=== PATIENT | female | born 1995 | race Caucasian/White ===

== ENCOUNTER 2023-02-26 07:50 | Observation (INO) | payer OTHER, SELFPAY ==
[2023-02-26] VITALS (21 sets, daily range): BP systolic 100–145; BP diastolic 54–92; PULSE 57–100; RESP 12–18; TEMP 36.2–36.9; O2SAT 95–100; BMI 31.6
--- NOTE | 2023-02-26 | DI.US.S_ITS ---
PROCEDURE: US PELVIC COMPLETE INDICATIONS: RIGHT LOWER QUADRANT PAIN ?CYST TECHNIQUE: Real-time scanning was performed of the pelvic organs, with image documentation. Additional endovaginal scanning was necessary due to incomplete visualization of the adnexal and endometrial structures by transabdominal scanning. COMPARISON: None. FINDINGS: Uterus: Uterus is anteverted and normal in size at 7.4 x 4.8 x 3.6 cm. The myometrium is homogeneous. The endometrium measures 4 mm combined thickness. No focal uterine mass Ovaries: The right ovary measures 4.5 x 1.8 x 2.4 cm, with a calculated ovarian volume of 9.9 cc. The left ovary measures 4.5 x 3.6 x 2.5 cm, with a calculated ovarian volume of 22.5 cc. There is intact flow to both ovaries. Multiple left ovarian cysts are present, largest of which measures 28 mm and 18 mm. Other: Physiologic amount of fluid within the pelvis. Appendix is not seen. IMPRESSION: 1. No acute process. 2. Appendix not seen. 3. Left ovarian cysts. We strive to produce accurate, complete, and clear reports of imaging services. To assist us in improving patient care, this report was composed using standard report templates and voice recognition software. Therefore, it may contain abnormal punctuation, insertions and/or omissions. Occasional wrong-word or sound-alike substitutions may occur. Though we review the report and make efforts to correct it, we do recommend that the report be read carefully in proper context to recognize any text inaccuracies. Dictated by: Ml Rocha M.D. on 02/26/2023 at 12:05 Approved by: Ml Rocha M.D. on 02/26/2023 at 12:07
--- NOTE | 2023-02-26 | PATH_ITS ---
[facility] Accession Number: [id number] No. of containers..01 Tissue . 01 Material submitted: . appendix - APPENDIX . 01 Diagnosis: Appendix, Appendectomy: Acute appendicitis and periappendicitis. MRV 03/07/2023 1245 Local . 01 Electronically signed: . Lashay Mishra MD, Pathologist NPI- [id number] . 01 Gross description: . The specimen is received in formalin labeled with the patient's name, , and appendix, consists of a cheema vermiform appendix measuring 4.9 cm in length by 0.7 cm in diameter with cheema smooth serosa and a small amount of adherent material, possibly consistent with exudate. Mesoappendix extends out to 1.9 cm, and the margin is inked blue. Sectioning reveals a patent pinpoint lumen with no contents identified. The ackerman are cheema and average 0.4 cm thick with no perforations or lesions identified. Tin Can Feeder sections to include the margin, one-half of the bisected distal tip, and cross sections are submitted in cassette A1. ([id number]) /MRV 02/27/2023 1839 Local . 01 Pathologist provided ICD-10: K35.80 . 01 CPT . 923204 Specimen Comment: A courtesy copy of this report has been sent to [phone] Performed at: 01 [facility] [address] [place] [address] [facility] [place], [place], [place] [id number] MD Tamir Bazan MD Phone: [phone]
--- NOTE | 2023-02-26 08:03 | ED_ITS ---
HPI - Abdominal Pain General Chief Complaint: Abdominal Pain Stated Complaint: abd pain Time Seen by Provider: 02/26/23 08:03 Source: patient Mode of arrival: Ambulatory Limitations: no limitations History of Present Illness HPI narrative: Healthy 27-year-old female with Nexplanon in place with complaint of right-sided abdominal pain that started last night around 1900. Patient states no back or flank pain. It has been constant throughout the night but increased this morning. Patient denies any fevers or chills. No nausea or vomiting. No chest pain or shortness of breath. No syncope. Patient states she is been a little constipated she is had hard stools but did have a bowel movement in the last day that had small amounts. No black or bloody stools. No dysuria, urgency or frequency. No vaginal bleeding or discharge. Patient states her menses have been somewhat irregular since she would her Nexplanon placed. She states pain is worse with any sort of movement, twisting bumps in the car. She states rest or no movement makes it improved. Describes it as sort of a slow onset. Patient states no daily prescriptions. No known drug allergies. No prior surgery she does have her gallbladder and appendix. No tobacco, occasional alcohol, no recreational drugs. Related Data Home Medications Medication Instructions Recorded Confirmed No Known Home Medications 02/26/23 02/26/23 Allergies Allergy/AdvReac Type Severity Reaction Status Date / Time No Known Drug Allergies Allergy Verified 02/26/23 07:58 Review of Systems Review of Systems ROS Unobtainable: All systems reviewed & are unremarkable except as noted in HPI and below Patient History Social History household members: none Smoking Status: Never smoker Smoking Status: Never smoker alcohol intake frequency: a few times a week Substance Use Type: does not use Exam Narrative Exam Narrative: GENERAL: Alert and oriented x three, well-appearing female in mild distress. HEENT: Head normocephalic, atraumatic, EOMI, pupils reactive, face symmetric, moist mucous membranes NECK: Supple, full range of motion CARDIOVASCULAR: Regular rate and rhythm without murmurs, rubs or gallops. RESPIRATORY: Breath sounds equal bilaterally, no wheezes rales or rhonchi. ABDOMEN: Soft, positive for right lower quadrant tenderness. Minimal to no tenderness in the right upper quadrant. Patient also has positive Rovsing sign. Normoactive bowel sounds all 4 quadrants. No guarding or rebound, rigidity, no mass : No CVA tenderness EXTREMITIES: Normal range of motion, no clubbing or edema. Neurovascularly intact NEUROLOGICAL: Cranial nerves II through XII grossly intact. Moving all extremities SKIN: Warm, dry, no petechiae, no rashes or lesions. Initial Vital Signs Initial Vital Signs: Vital Signs Temperature 97.9 F 02/26/23 07:59 Pulse Rate 100 H 02/26/23 07:59 Respiratory Rate 18 02/26/23 07:59 Blood Pressure 132/83 02/26/23 07:59 Pulse Oximetry 99 02/26/23 07:59 Oxygen Delivery Method Room Air 02/26/23 07:59 Course Orders Ordered: ED Orders 02/26/23 10:08 CT abdomen pelvis w con Stat Acetaminophen (Acetaminophen 325 Mg Tablet) 650 mg PO Q6H PRN PRN Reason: Fever/Mild Pain (1-3) Hydrocodone Bitart/Acetaminophen (Hydrocodone/Acet 5/325 Tablet) 1 tab PO Q4H PRN PRN Reason: Pain, Moderate (4-6) Hydrocodone Bitart/Acetaminophen (Hydrocodone/Acet 5/325 Tablet) 2 tab PO Q4H PRN PRN Reason: Pain, Severe (7-10) Hydromorphone HCl (Hydromorphone 1 Mg Inj) 0 mg IV Q5MIN PRN PRN Reason: Pain, Moderate (4-6) Hydromorphone HCl (Hydromorphone 1 Mg Inj) 0 mg IV Q5MIN PRN PRN Reason: Pain, Mild (1-3) Hydromorphone HCl (Hydromorphone 0.5 Mg Inj) 0.5 mg IV Q2H PRN PRN Reason: Pain, Severe (7-10) Lactated Ringer's (Lactated Ringers) 1,000 mls @ 42 mls/hr IV CONT DONNA Last Admin: 02/26/23 15:58 Dose: 42 mls/hr Documented By: Ibuprofen (Ibuprofen 600 Mg Tablet) 600 mg PO Q6H PRN PRN Reason: Fever/Mild Pain (1-3) Naloxone HCl (Naloxone 0.4 Mg/Ml Vial) 0.2 mg IV Q2MIN PRN PRN Reason: Opiate Reversal Ondansetron HCl (Ondansetron 4 Mg Odt) 4 mg PO NOW PRN PRN Reason: Nausea And Vomiting Ondansetron HCl (Ondansetron 4 Mg/2 Ml Inj) 4 mg IV NOW PRN PRN Reason: Nausea And Vomiting Ondansetron HCl (Ondansetron 4 Mg/2 Ml Inj) 4 mg IV NOW PRN PRN Reason: Nausea And Vomiting Ondansetron HCl (Ondansetron 4 Mg/2 Ml Inj) 4 mg IV Q8HR PRN PRN Reason: Nausea And Vomiting Oxycodone HCl (Oxycodone Ir 5 Mg Tablet) 5 mg PO PACUNOW PRN PRN Reason: Mild or moderate pain Last Admin: 02/26/23 16:44 Dose: 5 mg Documented By: ELIOT Discontinued Medications Bupivacaine HCl 30 ml/ (Epinephrine HCl 0.15 mg) 0 ml INJ NOW ONE Stop: 02/26/23 15:44 Last Admin: 02/26/23 15:43 Dose: 20 ml Documented By: Sodium Chloride (Normal Saline 0.9%) 1,000 mls @ 1,000 mls/hr IV BOLUS ONE Stop: 02/26/23 09:13 Last Infusion: 02/26/23 09:32 Dose: Infused Documented By: Admin: 02/26/23 08:17 Dose: 1,000 mls/hr Documented By: SYLVIA Piperacillin Sod/Tazobactam (Sod 4.5 gm/ Sodium Chloride) 100 mls @ 200 mls/hr IV NOW ONE Stop: 02/26/23 11:52 Last Infusion: 02/26/23 12:24 Dose: 200 mls/hr Documented By: Admin: 02/26/23 12:04 Dose: 200 mls/hr Documented By: KALLIE Ketorolac Tromethamine (Ketorolac 30 Mg/Ml Vial) 15 mg IV NOW ONE Stop: 02/26/23 08:15 Last Admin: 02/26/23 08:17 Dose: 15 mg Documented By: SYLVIA Scopolamine (Scopolamine 1 Patch) 1 patch TOP NOW ONE Stop: 02/26/23 13:21 Last Admin: 02/26/23 14:56 Dose: 1 patch Documented By: HUDSON Vital Signs Vital signs: Vital Signs - 8 hr 02/26/23 11:04 02/26/23 11:05 02/26/23 11:05 Pulse Rate 72 70 Blood Pressure 135/73 Pulse Oximetry 95 100 02/26/23 11:30 02/26/23 11:30 02/26/23 12:00 Pulse Rate 78 77 Blood Pressure 129/92 H Pulse Oximetry 98 98 02/26/23 12:00 Pulse Rate Blood Pressure 129/73 Pulse Oximetry MDM - Abdominal Pain Lab Data 02/26/23 08:05 02/26/23 08:05 Labs: Lab Results 02/26/23 02/26/23 Range/Units 08:05 09:10 WBC 8.1 (4.5-11.0) X10^3/uL RBC 4.40 (4.0-5.2) X10^6/uL Hgb 14.3 (12.0-16.0) g/dL Hct 40.0 (36-46) % MCV 90.9 (80-100) fL MCH 32.4 (26-34) PG MCHC 35.6 (30-36) % RDW 12.6 (11.6-14.8) % Plt Count 236 (150-400) X10^3/uL Neut % (Auto) 78.2 H (50-75) % Lymph % (Auto) 13.1 L (25-40) % [place] % (Auto) 7.4 (3-14) % Eos % (Auto) 1.0 L (2-4) % Baso % (Auto) 0.3 (0-2) % Neut # (Auto) 6400 (8738-0909) /uL Lymph # (Auto) 1100 (1897-8803) /uL [place] # (Auto) 600 (0-900) /uL Eos # (Auto) 100 (0-450) /uL Baso # (Auto) 0 (0-100) /uL Sodium 136 L (137-145) mmol/L Potassium 3.6 (3.4-5.1) mmol/L Chloride 103 (98-107) mmol/L Carbon Dioxide 28 (22-32) mmol/L BUN 15 (7-17) mg/dL Creatinine 0.79 (0.52-1.04) mg/dL Estimated GFR > 60 (>60) mL/min BUN/Creatinine Ratio 19.0 (6-22) Glucose 99 (70-100) mg/dL Calcium 10.0 (8.4-10.2) mg/dL Total Bilirubin 1.9 H (0.2-1.3) mg/dL AST 23 (14-36) IU/L ALT 21 (<35) IU/L Alkaline Phosphatase 63 (38-126) U/L Total Protein 7.5 (6.3-8.2) g/dL Albumin 4.5 (3.5-5.0) g/dL Globulin 3.0 (1.7-4.1) g/dL Albumin/Globulin Ratio 1.5 (1.0-2.8) Lipase 50 (23-300) U/L Urine Color Yellow Urine Appearance Clear Urine pH 7.5 (4.5-8.0) Ur Specific [place] 1.015 (1.000-1.035) Urine Protein Negative (Negative) Urine Glucose (UA) Negative (Negative) g/dL Urine Ketones Negative (NEGATIVE) Urine Occult Blood Negative (Negative) Urine Nitrate Negative (Negative) Urine Bilirubin Negative (NEGATIVE) Urine Urobilinogen Normal (0.2) E.U./dL Ur Leukocyte Esterase Negative (NEGATIVE) Urine RBC None seen (0-5/HPF) Urine WBC None seen (0-5/HPF) Ur Squamous Epith Cells None seen (0-5/HPF) Urine Bacteria None seen (None) Ur Culture Indicated? Cult not indicated Urine Test Negative (Negative) Imaging Data CT scan - abdomen/pelvis: Radiologist's Impression: [place] [address] CT Scan Report Signed Patient: Tawny Viveros MR#: [id number] : 1995 Acct:[id number] Age/Sex: 27 / F Date of Service: 02/26/23 Loc: ED Accession Number: [id number] Procedure: CT abdomen pelvis w con Ordering Provider: Mechelle Post D.O. PROCEDURE: CT ABDOMEN PELVIS W CON INDICATIONS: RLQ pain TECHNIQUE: After the administration of intravenous contrast, axial sections acquired from the lung bases to the pubic symphysis. Coronal and sagittal reformats were performed. For radiation dose reduction, the following was used: automated exposure control, adjustment of mA and/or kV according to patient size. COMPARISON: None. FINDINGS: Image quality: Excellent. Lung bases: Unremarkable. Heart: No significant findings. ABDOMEN: Liver: Unremarkable. Gallbladder: Unremarkable. Biliary ducts: Unremarkable. Pancreas: Unremarkable. Spleen: Unremarkable. Adrenal Glands: Unremarkable. Kidneys and Ureters: Unremarkable. Stomach and Bowel: Stomach, small bowel loops, and colon are unremarkable. Appendix measures 10 mm without surrounding fat stranding. Peritoneum: No abnormal intraperitoneal fluid. No free air. Ventral Wall: No hernias. Abdominal Nodes: No retroperitoneal or mesenteric adenopathy by size criteria. Vessels: Aorta and inferior vena cava are normal in size. PELVIS: Pelvic Organs: Unremarkable. Bladder: Unremarkable. Pelvic Nodes: No enlarged lymph nodes. Miscellaneous: No hernias are seen. Bones: Unremarkable. IMPRESSION: 1. Mild enlargement of the appendix, consistent with acute appendicitis in the appropriate clinical setting. Dictated by: Ml Rocha M.D. on 02/26/2023 at 11:29 Approved by: Ml Rocha M.D. on 02/26/2023 at 11:30 MDM Narrative Medical decision making narrative: 27-year-old female presents with complaint of right lower abdominal pain. Patient states started about 12 hours ago has been persistent worsening of the into today. Patient's physical exam seems most consistent with a appendicitis she is positive Rovsing sign and right lower quadrant tenderness on examination. No back or flank pain. She has been slightly constipated but having bowel movements. No other obstructive symptoms. Discussed with patient we will start with labs, urine and ultrasound to evaluate for appendicitis versus ovarian cyst versus other. Discussed with patient if unable to image appendix with the next proceed to CT imaging. Plan for fluids, pain control and on recheck Patient's labs showed elevated bilirubin. Slight leftward shift. Sodium 136. Otherwise normal LFTs and lipase. Spoke with ultrasound and they added on right upper quadrant. Appendix was not visualized patient has a 3 cm cyst on the no obvious changes to her gallbladder on the right. Urine sample shows no acute change. Urine is negative. CT abdomen pelvis obtained and shows appendicitis with 10 mm appendix no stranding. Spoke with Dr. Merrill reviewed patient's exam findings are consistent with appy. She has enlarged appendix and ultrasound reports are not back but she found no acute change to gallbladder with a left ovarian cyst appendix was not visualized on ultrasound. Accepts with plan for OR today or tomorrow. Asked for a dose of IV Zosyn. We will see patient to discuss options. Patient was updated she is agreeable with the plan. Discharge Plan Departure Patient Disposition: Admitted as Observation Clinical Impression: Acute appendicitis Qualifiers: Acute appendicitis type: with localized peritonitis Appendicitis gangrene presence: without gangrene Appendicitis perforation presence: without perforation Appendicitis abscess presence: without abscess Qualified Code(s): K 35.30 - Acute appendicitis with localized peritonitis, without perforation or gangrene Admit Date/Time: 02/26/23 12:00 Admit Provider: Jhonatan Merrill
--- NOTE | 2023-02-26 08:13 | DI.US.S_ITS ---
PROCEDURE: US ABDOMEN LIMITED INDICATIONS: RIGHT LOWER QUADRANT PAIN ?APPENDICITIS TECHNIQUE: Real-time focused scanning was performed of the abdomen, with image documentation. COMPARISON: None. FINDINGS: Liver is within normal limits. Gallbladder is grossly unremarkable. No biliary ductal dilatation. Pancreas is grossly unremarkable. IMPRESSION: No acute process. Dictated by: Ml Rocha M.D. on 02/26/2023 at 12:05 Approved by: Ml Rocha M.D. on 02/26/2023 at 12:05
[2023-02-26 08:17] LABS: Add Manual Diff / Slide Review NO; Basophils Absolute Auto 0 /uL (0-100); Basophils Percent Auto 0.3 % (0-2); Eosinophils Absolute Auto 100 /uL (0-450); Hemoglobin 14.3 g/dL (12.0-16.0); Lymphocytes Absolute Auto 1100 /uL (1100-4500); Lymphocytes Percent Auto 13.1 % (25-40); Mean Corpuscular HGB Conc 35.6 % (30-36); Mean Corpuscular Hemoglobin 32.4 PG (26-34); Mean Corpuscular Volume 90.9 fL (80-100); Monocytes Absolute Auto 600 /uL (0-900); Monocytes Percent Auto 7.4 % (3-14); Neutrophils Absolute Auto 6400 /uL (1500-7000); Neutrophils Percent Auto 78.2 % (50-75); Platelet Count 236 X10^3/uL (150-400); Red Cell Distribution Width 12.6 % (11.6-14.8); White Blood Cell Count 8.1 X10^3/uL (4.5-11.0)
[2023-02-26] MEDS: SODIUM CHLORIDE 0.9% 1,000 ML 1000 ML IV (08:17)
[2023-02-26] MEDS: KETOROLAC 30 MG/ML VIAL 15 MG IV (08:17)
[2023-02-26 08:28] LABS: Alanine Aminotransferase 21 IU/L (<35); Albumin 4.5 g/dL (3.5-5.0); Albumin Globulin Ratio 1.5 (1.0-2.8); Alkaline Phosphatase 63 U/L (38-126); Aspartate Aminotransferase 23 IU/L (14-36); Bilirubin Total 1.9 mg/dL (0.2-1.3); Blood Urea Nitrogen 15 mg/dL (7-17); Carbon Dioxide 28 mmol/L (22-32); Chloride 103 mmol/L (98-107); Estimated Glomerular Filt Rate > 60 mL/min (>60); Glucose 99 mg/dL (70-100); HEMOLYSIS < 15 (0-50); Lipase 50 U/L (23-300); Potassium 3.6 mmol/L (3.4-5.1); Sodium 136 mmol/L (137-145); Total Protein 7.5 g/dL (6.3-8.2)
[2023-02-26 09:31] LABS: Pregnancy Test Urine Negative (Negative)
[2023-02-26 09:34] LABS: Appearance Urine UA Clear; Color Urine UA YELLOW
[2023-02-26 09:35] LABS: Bacteria Urine None Seen; Bilirubin Urine UA Negative (NEGATIVE); Culture Indicated Urine Cult Not Indicated; Glucose Urine UA NEGATIVE (Negative); Ketones Urine UA NEGATIVE (NEGATIVE); Leukocyte Esterase Urine UA NEGATIVE (NEGATIVE); Nitrite Urine UA NEGATIVE (Negative); Occult Blood Urine UA Negative (Negative); Protein Urine UA Negative (Negative); RBC Urine None Seen (0-5/HPF); Specific Gravity Urine UA 1.015 (1.000-1.035); Squamous Epithelial Cell Urine None Seen (0-5/HPF); Urobilinogen Urine UA Normal E.U./dL (0.2); WBC Urine None Seen (0-5/HPF); pH Urine UA 7.5 (4.5-8.0)
--- NOTE | 2023-02-26 10:08 | DI.CT.S_ITS ---
PROCEDURE: CT ABDOMEN PELVIS W CON INDICATIONS: RLQ pain TECHNIQUE: After the administration of intravenous contrast, axial sections acquired from the lung bases to the pubic symphysis. Coronal and sagittal reformats were performed. For radiation dose reduction, the following was used: automated exposure control, adjustment of mA and/or kV according to patient size. COMPARISON: None. FINDINGS: Image quality: Excellent. Lung bases: Unremarkable. Heart: No significant findings. ABDOMEN: Liver: Unremarkable. Gallbladder: Unremarkable. Biliary ducts: Unremarkable. Pancreas: Unremarkable. Spleen: Unremarkable. Adrenal Glands: Unremarkable. Kidneys and Ureters: Unremarkable. Stomach and Bowel: Stomach, small bowel loops, and colon are unremarkable. Appendix measures 10 mm without surrounding fat stranding. Peritoneum: No abnormal intraperitoneal fluid. No free air. Ventral Wall: No hernias. Abdominal Nodes: No retroperitoneal or mesenteric adenopathy by size criteria. Vessels: Aorta and inferior vena cava are normal in size. PELVIS: Pelvic Organs: Unremarkable. Bladder: Unremarkable. Pelvic Nodes: No enlarged lymph nodes. Miscellaneous: No hernias are seen. Bones: Unremarkable. IMPRESSION: 1. Mild enlargement of the appendix, consistent with acute appendicitis in the appropriate clinical setting. Dictated by: Ml Rocha M.D. on 02/26/2023 at 11:29 Approved by: Ml Rocha M.D. on 02/26/2023 at 11:30
[2023-02-26] MEDS: PIPERACILLIN/TAZO 4.5 GM in SODIUM CHLORIDE 0.9% 100 ML IV (12:04)
--- NOTE | 2023-02-26 13:04 | PM.HP.1 ---
History of Present Illness History of Present Illness Date Patient Seen: 02/26/23 Time Patient Seen: 13:04 Chief complaint: abd pain Narrative: Jenifer is a 27-year-old woman who developed generalized abdominal pain last night. The pain then localized to the right lower quadrant. She came to the ER today and a CT demonstrated an enlarged appendix consistent with an early appendicitis. Her white blood cell count is normal. She last ate at 6:30 a.m. this morning. No prior abdominal surgery. [facility] Social History household members: none Smoking Status: Never smoker Meds Home Medications and Allergies Home Medications Medication Instructions Recorded Confirmed Type No Known Home Medications 02/26/23 02/26/23 History Allergies Allergy/AdvReac Type Severity Reaction Status Date / Time No Known Drug Allergies Allergy Verified 02/26/23 07:58 Exam Vital Signs (past 8 hours): - 02/26/23 07:59 02/26/23 09:52 02/26/23 09:52 Temperature 97.9 F Pulse Rate 100 H 87 Respiratory Rate 18 Blood Pressure 132/83 145/73 H Pulse Oximetry 99 99 Oxygen Delivery Method Room Air 02/26/23 10:00 02/26/23 10:00 02/26/23 10:30 Temperature Pulse Rate 69 62 Respiratory Rate Blood Pressure 140/60 Pulse Oximetry 97 97 Oxygen Delivery Method 02/26/23 10:30 02/26/23 11:04 02/26/23 11:05 Temperature Pulse Rate 72 Respiratory Rate Blood Pressure 123/67 135/73 Pulse Oximetry 95 Oxygen Delivery Method 02/26/23 11:05 02/26/23 11:30 02/26/23 11:30 Temperature Pulse Rate 70 78 Respiratory Rate Blood Pressure 129/92 H Pulse Oximetry 100 98 Oxygen Delivery Method 02/26/23 12:00 02/26/23 12:00 Temperature Pulse Rate 77 Respiratory Rate Blood Pressure 129/73 Pulse Oximetry 98 Oxygen Delivery Method Oxygen Delivery Method Room Air Narrative Exam Narrative: Tender to palpation at McBurney's point Objective Labs 02/26/23 08:05 02/26/23 08:05 Labs: Laboratory Results - last 24 hr 02/26/23 02/26/23 08:05 09:10 WBC 8.1 RBC 4.40 Hgb 14.3 Hct 40.0 MCV 90.9 MCH 32.4 MCHC 35.6 RDW 12.6 Plt Count 236 Neut % (Auto) 78.2 H Lymph % (Auto) 13.1 L [place] % (Auto) 7.4 Eos % (Auto) 1.0 L Baso % (Auto) 0.3 Neut # (Auto) 6400 Lymph # (Auto) 1100 [place] # (Auto) 600 Eos # (Auto) 100 Baso # (Auto) 0 Sodium 136 L Potassium 3.6 Chloride 103 Carbon Dioxide 28 BUN 15 Creatinine 0.79 Estimated GFR > 60 BUN/Creatinine Ratio 19.0 Glucose 99 Calcium 10.0 Total Bilirubin 1.9 H AST 23 ALT 21 Alkaline Phosphatase 63 Total Protein 7.5 Albumin 4.5 Globulin 3.0 Albumin/Globulin Ratio 1.5 Lipase 50 Urine Color Yellow Urine Appearance Clear Urine pH 7.5 Ur Specific [place] 1.015 Urine Protein Negative Urine Glucose (UA) Negative Urine Ketones Negative Urine Occult Blood Negative Urine Nitrate Negative Urine Bilirubin Negative Urine Urobilinogen Normal Ur Leukocyte Esterase Negative Urine RBC None seen Urine WBC None seen Ur Squamous Epith Cells None seen Urine Bacteria None seen Ur Culture Indicated? Cult not indicated Urine Test Negative Assessment & Plan Assessment and plan (1) Acute appendicitis: Qualifiers: Acute appendicitis type: with localized peritonitis Appendicitis gangrene presence: without gangrene Appendicitis perforation presence: without perforation Appendicitis abscess presence: without abscess Qualified Code(s): K35.30 - Acute appendicitis with localized peritonitis, without perforation or gangrene Status: Acute Plan I explained to Jenifer that she appears to have an early acute appendicitis. Alternatively, this could be an enlarged appendix that is normal and her pain could be from something else. I explained that the treatment options for acute appendicitis or laparoscopic appendectomy or antibiotic therapy. I discussed the risks and benefits of both approaches. I recommended that we proceed with a laparoscopic appendectomy. She would like to proceed. She is receiving Zosyn. Quality VTE Deep Vein Thrombosis/Pulmonary Embolism Present on Admission: No
[2023-02-26] MEDS: SCOPOLAMINE 1 PATCH TOP (14:56)
[2023-02-26 15:11] LABS: COVID19 -Nasal RAPID POSITIVE (Negative)
[2023-02-26] MEDS: BUPIVACAINE 0.5% (PF) 30 ML, EPINEPHrine 0.15 MG INJ (15:43)
--- NOTE | 2023-02-26 15:44 | SUR.OPER ---
Supine on padded OR bed, head on pillow, safety belt at thigh, left arm padded and tucked at side. Right arm secured on padded arm board <90 degrees abduction. Legs uncrossed. Padded footboard in place. Tape over blanket to secure lower legs.
[2023-02-26] MEDS: LACTATED RINGERS 1,000 ML 42 ML IV (15:58)
--- NOTE | 2023-02-26 16:26 | PM.OP.1 ---
Operative Date/Time/Diagnoses Date of procedure: 02/26/23 Time of procedure: 16:27 Pre-op diagnosis: Acute appendicitis Post-op diagnosis: same Procedure & Clinicians Procedure: Laparoscopic appendectomy Same procedure as scheduled: Yes Surgeon: Jhonatan Merrill Click Yes if Unassisted: Yes Anesthesia Type: General Operative Notes Procedure in detail: The patient was on scheduled IV antibiotics. The patient was brought to the operating room, placed on the table in the supine position and general endotracheal anesthesia was induced. A time-out was performed. The abdomen was prepped and draped in the usual fashion. After injection of 0.25% Marcaine a 1 cm infraumbilical incision was created with a 15 blade scalpel. The umbilical stalk was grasped with a Carmel clamp to elevate the abdominal wall. The infraumbilical midline fascia was cleared over 1 cm and the fascia was scored with cautery. The peritoneum was pierced with a Peon clamp. The Rafi port was placed and the abdomen was insufflated to 15 mmHg. The camera was inserted and there was no evidence of any injury from the entry. Next, 5 mm ports were placed in the suprapubic and left lower quadrant positions under direct vision. The patient was placed in Trendelenburg with the right-side elevated. The terminal ileum was swept away from the cecum and the appendix was visualized. The appendix was inflamed and distended but not perforated. The mesoappendix was divided with the Power-seal to the base. Two PDS Endoloops were placed at the base and a 3rd endoloop was placed about a centimeter distally and the appendix was divided sharply. The specimen was placed in a Endo-Catch bag. A small amount of fluid with suctioned from the base of the appendix and pelvis. The table was flattened and the terminal ileum and omentum were allowed to slide in over the appendiceal stump. Finally, the 5 mm ports were removed under direct vision. The pneumoperitoneum was released and the Rafi port was removed followed by the Endo-Catch bag. Additional local was injected into the fascia and the infraumbilical incision was closed with 2 interrupted 2-0 Vicryl sutures. The skin incisions were closed with 4 Monocryl. Steri-Strips were applied followed by Band-Aids. EBL: 5 mL Specimen: Appendix Post-operative Condition: stable Disposition: PACU
[2023-02-26] MEDS: OXYCODONE IR 5 MG TABLET PO (16:44)
[2023-02-26] MEDS: HYDROCODONE/ACET 5/325 TABLET 1 TAB PO (21:34)
[2023-02-26] MEDS: SODIUM CHLORIDE 0.9% FLUSH 10 ML IV (21:34)
[2023-02-27] MEDS: HYDROCODONE/ACET 5/325 TABLET 1 TAB PO (06:22)
[2023-02-27 08:31] VITALS: BP 113/69; PULSE 50; RESP 19; TEMP 36.4; O2SAT 100
--- NOTE | 2023-02-27 10:11 | PC.NURSE ---
Discharge Note Patient A&O, VSS, RA, no complaints of pain/discomfort. Discharge packet reviewed with patient, all questions/concerns addressed. PIV discontinued. Patient able to dress self and pack all belongings. Patient reminded to citrus picker prescription at preferred pharmacy. Patient taken down via wheelchair to POV.
--- NOTE | 2023-02-27 10:30 | CM.DANOTE ---
DCP Brief Assessment Patient is a 27yo F here following lap appy PCP not listed. Likely [facility] due to employment history Payer Sabine simmons MSW reviewed EMR. Patient d/c home prior to being seen by this MD UROLOGIST. Per chart review, indep at home. No needs identified at this time. Plan: patient d.c home transport in POV. no needs identified at this time. CM team will follow as needed. GUILLERMINA Barnes Discharge Planning/Care Management CM Discharge Assessment Start: 02/27/23 10:29 Freq: Status: Active Protocol: Document 02/27/23 10:29 SL (Rec: 02/27/23 10:30 SL [id number]) Discharge Planning Assessment Assigned Manager Career GUILLERMINA Jansen Advance Directives? No History Provided By Medical Record Prior Living Arrangements House Household Members none Barriers to Discharge No Discharge Plan Home Referrals Initiated None needed Whiteboard Updated in Patient Room with No name and ext. # of Manager Career Review Status In Process Next Review Type Continued Stay Review
== END 2023-02-27 09:30 | disposition home or self-care (01) ==
LOC: ED 11:59 → AC 12:01
PROVIDERS: Admitting Provider Surgery; Emergency Provider Emergency Medicine; Visit Provider Surgery
PROC: 0DTJ4ZZ Resection of Appendix, Percutaneous Endoscopic Approach (ICD-10-PCS; CPT 44970; principal; 2023-02-26 15:45)
DX: K35.80 Unspecified acute appendicitis (principal); U07.1 COVID-19
CPT/HCPCS: 44970; 36415; 74177; 76705; 76830; 76856; 80053; 81001; 81025; 83690; 85025; 87635; 93975; 96365; 96375; 99222; 99284; 99285; C9803; G0378; J0171; J1100; J1885; J2250; J2405; J2543; J2704; J3010; Q9967